=== PATIENT | female | born 1985 | race African-American/Black ===

== ENCOUNTER 2018-04-12 12:53 | Observation (INO) ==
[2018-04-12] MEDS ORDERED: Acetaminophen 325 MG Tablet PO PRN (12:55)
[2018-04-12] MEDS ORDERED: Labetalol HCl Inj 100 MG/20 ML Vial IV.PUSH PRN ×3 (12:55→13:17)
[2018-04-12] MEDS ORDERED: Docusate Sodium 100 MG Capsule PO PRN (12:55)
[2018-04-12] MEDS ORDERED: Zolpidem Tartrate 5 MG Tablet PO PRN (12:55)
[2018-04-12] MEDS ORDERED: NIFEdipine 10 MG Capsule PO PRN (13:42)
[2018-04-12] MEDS ORDERED: NIFEdipine 10 MG Capsule ONE (13:42)
--- NOTE | 2018-04-12 13:49 | ED ---
History of Present Illness Primary Care Physician: No Primary Care Physician History of Present Illness: 32-year-old female at 19/1 weeks gestation presents to [facility] ED [facility] for elevated blood pressures of 228/129. [facility] Patient states that she has chronic hypertension. She currently takes Procardia 60 mg daily and labetalol 100 mg twice daily. States that she took her labetalol this morning. States that she takes Procardia at night. She reports that her blood pressures have been controlled at home. Endorses good movement. Denies hypertension, chest pain, shortness of breath, vision changes, abdominal pain, and swelling. Denies leakage of fluid and vaginal bleeding. Past medical history: Chronic hypertension Past surgical history 13 years ago at [facility] Allergies: NKDA Medications: vitamins, Procardia 6 mg daily, labetalol 100 mg twice daily Family history: None Social history: Denies smoking, alcohol, and illicit drug use Review of Systems All other systems reviewed negative except as stated [facility] - Family History Family History: Family History (Last Updated 04/12/18 @ 13:57 by Juliana Salguero MD, R2) Other No significant family history - Social History I have reviewed the patient's Social History: Yes - Tobacco History Smoking Status: Never smoker - Travel History Recent Travel in the [place] Within the Last 8 Weeks: No Recent Travel Out of the Country Within the Last 8 Weeks: No Medications and Allergies Active Medications: Active Medications Acetaminophen (Tylenol) 650 mg PO Q4H PRN PRN Reason: PAIN SCALE 1 TO 2 Docusate Sodium (Colace) 100 mg PO BID PRN PRN Reason: CONSTIPATION Lactated Ringer's (Lr 1000 Ml Inj) 1,000 mls @ 75 mls/hr IV.CONT .[id number] ROSA Labetalol HCl (Trandate Inj) 20 mg IV.PUSH NOW PRN PRN Reason: SEE LABEL COMMENTS Labetalol HCl (Trandate Inj) 80 mg IV.PUSH NOW PRN PRN Reason: SEE LABEL COMMENTS Labetalol HCl (Trandate Inj) 40 mg IV.PUSH NOW PRN PRN Reason: SEE LABEL COMMENTS Nifedipine (Procardia) 10 mg PO NOW PRN PRN Reason: SEE LABEL COMMENTS Nifedipine (Procardia) 20 mg PO NOW PRN PRN Reason: SEE LABEL COMMENTS Nifedipine (Procardia) 20 mg PO NOW PRN PRN Reason: SEE LABEL COMMENTS Ondansetron HCl (Zofran Odt) 4 mg PO Q6H PRN PRN Reason: NAUSEA OR VOMITING Ondansetron HCl (Zofran Inj) 4 mg IV.PUSH Q6H PRN PRN Reason: NAUSEA OR VOMITING Vit/Calcium/Iron/Folic Ac (Stuartnatal Plus 3) 1 tab PO DAILY ROSA Sodium Chloride (Ns Flush) 2 ml IV.FLUSH PRN PRN PRN Reason: FLUSH AFTER USING IV ACCESS Sodium Chloride (Ns Flush) 2 ml IV.FLUSH BID ROSA Zolpidem Tartrate (Ambien) 5 mg PO HS PRN PRN Reason: INSOMNIA Allergies Allergy/AdvReac Type Severity Reaction Status Date / Time No Known Allergies Allergy Verified 04/12/18 12:57 Exam Vital signs: Vital Signs 04/12/18 13:02 Pulse Rate 79 Blood Pressure 220/101 H Intake & Output 04/11/18 04/12/18 04/12/18 18:59 06:59 18:59 Weight 140.614 kg Narrative: GENERAL: Well-nourished, well-developed patient. SKIN: Warm and dry. HEAD: Normocephalic and atraumatic. EYES: No scleral icterus. No injection or drainage. ENT: No nasal drainage noted. Mucous membranes pink. Airway patent. NECK: Supple, trachea midline. No JVD. CARDIOVASCULAR: Regular rate and rhythm without murmurs, gallops, or rubs. RESPIRATORY: Breath sounds equal bilaterally. No accessory muscle use. BREASTS: Bilateral exam showed no masses , no retractions, no nipple discharge. ABDOMEN/GI: Abdomen soft, non-tender, bowel sounds present, no rebound, no guarding EXTREMITIES: No cyanosis or edema. BACK: Nontender without obvious deformity. No CVA tenderness. NEUROLOGICAL: Awake and alert. Motor and sensory grossly within normal limits. Five out of 5 muscle strength in all muscle groups. Normal speech. Assessment and Plan - Diagnosis (1) Chronic hypertension affecting Code(s): O10.919 - Unspecified pre-existing hypertension complicating , unspecified trimester Status: Acute (2) 19 weeks gestation of Code(s): Z3A.19 - 19 weeks gestation of Status: Acute (3) Hypertensive crisis Code(s): I16.9 - Hypertensive crisis, unspecified Status: Acute - Plan 32-year-old female at 19/1 weeks gestation presents to [facility] ED [facility] for hypertensive crisis. -Admit patient for 24 observation -Will administer Nifedipine PO and titrate as needed per hypertensive protocol -CBC, CMP, protein/creatine urine ratio, uric acid, UA & urine culture, 24 hr urine creatinine, 24 hr total protein, TSH & T4 ordered and pending sdw Dr. Ibanez Discharge Plan - Physicians Team Primary Care Provider: Primary Care Elinor Last Attending Provider: Syed Ibanez
--- NOTE | 2018-04-12 14:16 | P.OBGPN ---
Patient: Michelle Cervantes MR#: [id number] : 1985 Acct: [id number] Age/Sex: 32 / F ADM Date: 04/12/18 Loc: H2E 218-A Report Date: 04/12/[address]: Syed Ibanez MD cc: History of Present Illness Primary Care Physician: No Primary Care Physician History of Present Illness: 32-year-old female at 19/1 weeks gestation presents to [facility] for elevated blood pressures of 228/129. [facility] Patient states that she has chronic hypertension. She currently takes Procardia 60 mg daily and labetalol 100 mg twice daily. States that she took her labetalol this morning. States that she takes Procardia at night. She reports that her blood pressures have been controlled at home. Endorses good movement. Denies hypertension, chest pain, shortness of breath, vision changes, abdominal pain, and swelling. Denies leakage of fluid and vaginal bleeding. Past medical history: Chronic hypertension Past surgical history 13 years ago at [facility] Allergies: NKDA Medications: vitamins, Procardia 6 mg daily, labetalol 100 mg twice daily Family history: None Social history: Denies smoking, alcohol, and illicit drug use Review of Systems All other systems reviewed negative except as stated in HPI [facility] - Family History Family History: Family History (Last Updated 04/12/18 @ 13:57 by Juliana Salguero MD, R2) Other No significant family history - Social History I have reviewed the patient's Social History: Yes - Tobacco History Smoking Status: Never smoker - Travel History Recent Travel in the [place] Within the Last 8 Weeks: No Recent Travel Out of the Country Within the Last 8 Weeks: No Medications and Allergies Active Medications: Active Medications Acetaminophen (Tylenol) 650 mg PO Q4H PRN PRN Reason: PAIN SCALE 1 TO 2 Docusate Sodium (Colace) 100 mg PO BID PRN PRN Reason: CONSTIPATION Lactated Ringer's (Lr 1000 Ml Inj) 1,000 mls @ 75 mls/hr IV.CONT .[id number] ROSA Labetalol HCl (Trandate Inj) 20 mg IV.PUSH NOW PRN PRN Reason: SEE LABEL COMMENTS Labetalol HCl (Trandate Inj) 80 mg IV.PUSH NOW PRN PRN Reason: SEE LABEL COMMENTS Labetalol HCl (Trandate Inj) 40 mg IV.PUSH NOW PRN PRN Reason: SEE LABEL COMMENTS Nifedipine (Procardia) 10 mg PO NOW PRN PRN Reason: SEE LABEL COMMENTS Nifedipine (Procardia) 20 mg PO NOW PRN PRN Reason: SEE LABEL COMMENTS Nifedipine (Procardia) 20 mg PO NOW PRN PRN Reason: SEE LABEL COMMENTS Ondansetron HCl (Zofran Odt) 4 mg PO Q6H PRN PRN Reason: NAUSEA OR VOMITING Ondansetron HCl (Zofran Inj) 4 mg IV.PUSH Q6H PRN PRN Reason: NAUSEA OR VOMITING Vit/Calcium/Iron/Folic Ac (Stuartnatal Plus 3) 1 tab PO DAILY ROSA Sodium Chloride (Ns Flush) 2 ml IV.FLUSH PRN PRN PRN Reason: FLUSH AFTER USING IV ACCESS Sodium Chloride (Ns Flush) 2 ml IV.FLUSH BID ROSA Zolpidem Tartrate (Ambien) 5 mg PO HS PRN PRN Reason: INSOMNIA Allergies Allergy/AdvReac Type Severity Reaction Status Date / Time No Known Allergies Allergy Verified 04/12/18 12:57 Exam Vital signs: Vital Signs 04/12/18 13:02 Pulse Rate 79 Blood Pressure 220/101 H Intake & Output 04/11/18 04/12/18 04/12/18 18:59 06:59 18:59 Weight 140.614 kg Narrative: GENERAL: Well-nourished, well-developed patient. SKIN: Warm and dry. HEAD: Normocephalic and atraumatic. EYES: No scleral icterus. No injection or drainage. ENT: No nasal drainage noted. Mucous membranes pink. Airway patent. NECK: Supple, trachea midline. No JVD. CARDIOVASCULAR: Regular rate and rhythm without murmurs, gallops, or rubs. RESPIRATORY: Breath sounds equal bilaterally. No accessory muscle use. BREASTS: Bilateral exam showed no masses , no retractions, no nipple discharge. ABDOMEN/GI: Abdomen soft, non-tender, bowel sounds present, no rebound, no guarding EXTREMITIES: No cyanosis or edema. BACK: Nontender without obvious deformity. No CVA tenderness. NEUROLOGICAL: Awake and alert. Motor and sensory grossly within normal limits. Five out of 5 muscle strength in all muscle groups. Normal speech. Assessment and Plan - Diagnosis (1) Chronic hypertension affecting Code(s): O10.919 - Unspecified pre-existing hypertension complicating , unspecified trimester Status: Acute (2) 19 weeks gestation of Code(s): Z3A.19 - 19 weeks gestation of Status: Acute (3) Hypertensive crisis Code(s): I16.9 - Hypertensive crisis, unspecified Status: Acute - Plan 32-year-old female at 19/1 weeks gestation presents to the [facility] ED from [facility] for hypertensive crisis. -Admit patient for 24 observation -Will administer Nifedipine PO and titrate as needed per hypertensive protocol -CBC, CMP, protein/creatine urine ratio, uric acid, UA & urine culture, 24 hr urine creatinine, 24 hr total protein, TSH & T4 ordered and pending sdw Dr. Ibanez Discharge Plan - Physicians Team Primary Care Provider: Primary Care Elinor Last Attending Provider: Syed Ibanez Documented By: Juliana Salguero MD R2 04/12/18 1448 Signed By:
[2018-04-12 14:58] LABS: Alkaline Phosphatase 110 U/L (45-117); Total Protein 7.9 g/dL (6.4-8.2)
[2018-04-12 15:20] LABS: Alanine Aminotransferase 15 U/L (10-53); Albumin 2.9 g/dL (3.4-5.0); Anion Gap 8 meq/L (5-15); Aspartate Aminotransferase 34 U/L (15-37); Blood Urea Nitrogen 6 mg/dL (7-18); Calcium 8.6 mg/dL (8.5-10.1); Carbon Dioxide 21.5 meq/L (21.0-32.0); Chloride 107 meq/L (98-107); Glomerular Filtration Rate Greater Than 89 mL/min (>89); Glucose,Random 74 mg/dL (74-106); Sodium 136 meq/L (136-145); Uric Acid 2.9 mg/dl (2.6-6.0)
[2018-04-12 15:23] LABS: Potassium 4.7 meq/L (3.5-5.1)
[2018-04-12 15:25] LABS: Bacteria,Urine Moderate /hpf; Bilirubin,Urine Negative (Negative); Clarity,Urine Hazy (Clear); Color,Urine Yellow (Yellw/Straw); Glucose,Urine (UA) Negative (Negative); Leukocyte Esterase,Urine Negative (Negative); Mucus,Urine Few /lpf (Occasional); Nitrite,Urine Negative (Negative); Specific Gravity,Urine 1.017 (1.002-1.035); Squamous Epithelial Cell,Urine 2 /hpf (0-5)
[2018-04-12 15:38] LABS: Amphetamine Urine With Conf Neg (Neg); Benzodiazepine Urine With Conf Neg (Neg); Cocaine Urine With Conf Neg (Neg); Opiates Urine With Conf Neg (Neg)
[2018-04-12 15:38] LABS: Hematocrit 32.1 % (35.0-46.0); Hemoglobin 11.5 gm/dL (11.6-15.3); Mean Corpuscular HGB Conc 35.9 % (32.0-36.0); Mean Corpuscular Hemoglobin 28.5 pg (27.0-34.0); Mean Corpuscular Volume 79.4 fL (80.0-100.0); Mean Platelet Volume 7.9 fL (7.0-11.0); Platelet Count 280 th/mm3 (150-450); Red Blood Count 4.04 mil/mm3 (4.00-5.30); Red Cell Distribution Width 16.1 % (11.6-17.2); White Blood Count 6.9 th/mm3 (4.0-11.0)
[2018-04-12 15:42] LABS: Cannabinoid Urine With Conf Neg (Neg)
[2018-04-12 15:48] LABS: Protein/Creatinine Ratio,Urine 0.25 (0.00-0.14); Total Protein,Urine Random 29.5 mg/dL (0-11.8)
--- NOTE | 2018-04-12 15:51 | ECG ---
Date Performed: 04/12/2018 Time Performed: 14:11:04 PTAGE: 32 years EKG: Sinus rhythm borderline NONSPECIFIC ST & T-WAVE ABNORMALITY BORDERLINE ECG NO PREVIOUS TRACING DOCTOR: Jose Guadalupe Valencia Interpretating Date/Time 04/12/2018 15:50:19
[2018-04-12 16:12] LABS: Thyroid Stimulating Hormone 0.451 uIU/mL (0.358-3.740)
--- NOTE | 2018-04-12 16:42 | P.HPOB ---
Patient: Michelle Cervantes MR#: [id number] : 1985 Acct: [id number] Age/Sex: 32 / F ADM Date: 04/12/18 Loc: H2E 218-A Report Date: 04/12/[address]: Syed Ibanez MD cc: Patient: Michelle Cervantes MR#: [id number] : 1985 Acct: [id number] Age/Sex: 32 / F ADM Date: 04/12/18 Loc: H2E 218-A Report Date: 04/12/[address]: Syed Ibanez MD cc: History of Present Illness Primary Care Physician: No Primary Care Physician History of Present Illness: 32-year-old female at 19/1 weeks gestation presents to [facility] for elevated blood pressures of 228/129. [facility]. Patient states that she has chronic hypertension. She currently takes Procardia 60 mg daily and labetalol 100 mg twice daily. States that she took her labetalol this morning. States that she takes Procardia at night. She reports that her blood pressures have been controlled at home. Endorses good movement. Denies hypertension, chest pain, shortness of breath, vision changes, abdominal pain, and swelling. Denies leakage of fluid and vaginal bleeding. Past medical history: Chronic hypertension Past surgical history 13 years ago at [facility] Allergies: NKDA Medications: vitamins, Procardia 6 mg daily, labetalol 100 mg twice daily Family history: None Social history: Denies smoking, alcohol, and illicit drug use Review of Systems All other systems reviewed negative except as stated in HPI [facility] - Family History Family History: Family History (Last Updated 04/12/18 @ 13:57 by Juliana Salguero MD, R2) Other No significant family history - Social History I have reviewed the patient's Social History: Yes - Tobacco History Smoking Status: Never smoker - Travel History Recent Travel in the [place] Within the Last 8 Weeks: No Recent Travel Out of the Country Within the Last 8 Weeks: No Medications and Allergies Active Medications: Active Medications Acetaminophen (Tylenol) 650 mg PO Q4H PRN PRN Reason: PAIN SCALE 1 TO 2 Docusate Sodium (Colace) 100 mg PO BID PRN PRN Reason: CONSTIPATION Lactated Ringer's (Lr 1000 Ml Inj) 1,000 mls @ 75 mls/hr IV.CONT .[id number] ROSA Labetalol HCl (Trandate Inj) 20 mg IV.PUSH NOW PRN PRN Reason: SEE LABEL COMMENTS Labetalol HCl (Trandate Inj) 80 mg IV.PUSH NOW PRN PRN Reason: SEE LABEL COMMENTS Labetalol HCl (Trandate Inj) 40 mg IV.PUSH NOW PRN PRN Reason: SEE LABEL COMMENTS Nifedipine (Procardia) 10 mg PO NOW PRN PRN Reason: SEE LABEL COMMENTS Nifedipine (Procardia) 20 mg PO NOW PRN PRN Reason: SEE LABEL COMMENTS Nifedipine (Procardia) 20 mg PO NOW PRN PRN Reason: SEE LABEL COMMENTS Ondansetron HCl (Zofran Odt) 4 mg PO Q6H PRN PRN Reason: NAUSEA OR VOMITING Ondansetron HCl (Zofran Inj) 4 mg IV.PUSH Q6H PRN PRN Reason: NAUSEA OR VOMITING Vit/Calcium/Iron/Folic Ac (Stuartnatal Plus 3) 1 tab PO DAILY ROSA Sodium Chloride (Ns Flush) 2 ml IV.FLUSH PRN PRN PRN Reason: FLUSH AFTER USING IV ACCESS Sodium Chloride (Ns Flush) 2 ml IV.FLUSH BID ROSA Zolpidem Tartrate (Ambien) 5 mg PO HS PRN PRN Reason: INSOMNIA Allergies Allergy/AdvReac Type Severity Reaction Status Date / Time No Known Allergies Allergy Verified 04/12/18 12:57 Exam Vital signs: Vital Signs 04/12/18 13:02 Pulse Rate 79 Blood Pressure 220/101 H Intake & Output 04/11/18 04/12/18 04/12/18 18:59 06:59 18:59 Weight 140.614 kg Narrative: GENERAL: Well-nourished, well-developed patient. SKIN: Warm and dry. HEAD: Normocephalic and atraumatic. EYES: No scleral icterus. No injection or drainage. ENT: No nasal drainage noted. Mucous membranes pink. Airway patent. NECK: Supple, trachea midline. No JVD. CARDIOVASCULAR: Regular rate and rhythm without murmurs, gallops, or rubs. RESPIRATORY: Breath sounds equal bilaterally. No accessory muscle use. BREASTS: Bilateral exam showed no masses , no retractions, no nipple discharge. ABDOMEN/GI: Abdomen soft, non-tender, bowel sounds present, no rebound, no guarding EXTREMITIES: No cyanosis or edema. BACK: Nontender without obvious deformity. No CVA tenderness. NEUROLOGICAL: Awake and alert. Motor and sensory grossly within normal limits. Five out of 5 muscle strength in all muscle groups. Normal speech. Assessment and Plan - Diagnosis (1) Chronic hypertension affecting Code(s): O10.919 - Unspecified pre-existing hypertension complicating , unspecified trimester Status: Acute (2) 19 weeks gestation of Code(s): Z3A.19 - 19 weeks gestation of Status: Acute (3) Hypertensive crisis Code(s): I16.9 - Hypertensive crisis, unspecified Status: Acute - Plan 32-year-old female at 19/1 weeks gestation presents to [facility] ED [facility] for hypertensive crisis. -Admit patient for 24 observation -Will administer Nifedipine PO and titrate as needed per hypertensive protocol -CBC, CMP, protein/creatine urine ratio, uric acid, UA & urine culture, 24 hr urine creatinine, 24 hr total protein, TSH & T4 ordered and pending sdw Dr. Ibanez Discharge Plan - Physicians Team Primary Care Provider: Primary Care Navi,Elinor Attending Provider: Syed Ibanez Documented By: Juliana Salguero MD R2 04/12/18 1349 Signed By: Documented By: Juliana Salguero MD R2 04/12/18 1415 Signed By: <Electronically signed by Juliana Landis MD R2 Jose M> 04/12/18 1416 <Electronically signed by Syed Ibanez MD> 04/12/18 6770
[2018-04-12] MEDS ORDERED: Labetalol 200 MG Tablet PO ONE (18:00)
[2018-04-12] MEDS: hydrALAZINE HCl Inj 20 MG/ML Vial IV.PUSH PRN (19:35)
[2018-04-12] MEDS ORDERED: Butalbital/APAP/Caff 50/325/40 MG Tablet PO PRN (21:36)
[2018-04-13] MEDS: Labetalol 200 MG Tablet PO SCH ×3 (02:00→14:05)
[2018-04-13] MEDS ORDERED: Labetalol 200 MG Tablet PO SCH (06:00)
[2018-04-13] MEDS: hydrALAZINE HCl Inj 20 MG/ML Vial IV.PUSH PRN (07:32)
[2018-04-13] MEDS: Prenatal Vit/Ca/Iron/Folic Acid Tablet PO SCH (09:10)
--- NOTE | 2018-04-13 10:35 | P.OBANTE ---
Subjective Interval History: Pt feeling better, she states she had a similar episode in December where she had to be hospitalized for BP in the 200's. Pt denies headache, chest pain, shortness of breath. Antepartum ROS: Reports: movement normal Denies: Loss of fluid, Vaginal bleeding, Contractions Objective Vital Signs and I&O: Vital Signs 04/12/18 13:02 04/12/18 13:15 04/12/18 13:45 Temperature 98.1 F Pulse Rate 79 79 Respiratory Rate 18 Blood Pressure 220/101 H 208/101 H 04/12/18 14:01 04/12/18 14:21 04/12/18 14:52 Temperature Pulse Rate 73 87 90 Respiratory Rate Blood Pressure 205/105 H 162/95 H 174/77 H 04/12/18 15:04 04/12/18 15:37 04/12/18 15:41 Temperature Pulse Rate 89 106 H 100 H Respiratory Rate Blood Pressure 175/86 H 187/84 H 173/71 H 04/12/18 16:01 04/12/18 16:11 04/12/18 16:31 Temperature Pulse Rate 87 96 H 87 Respiratory Rate Blood Pressure 161/75 H 168/81 H 167/78 H 04/12/18 16:41 04/12/18 16:51 04/12/18 17:11 Temperature Pulse Rate 92 H 86 87 Respiratory Rate Blood Pressure 178/95 H 176/86 H 155/78 H 04/12/18 17:21 04/12/18 17:51 04/12/18 19:01 Temperature Pulse Rate 83 83 83 Respiratory Rate Blood Pressure 165/88 H 172/85 H 175/85 H 04/12/18 20:00 04/12/18 20:01 04/12/18 20:02 Temperature 98.9 F Pulse Rate 86 90 Respiratory Rate 18 18 Blood Pressure 163/87 H 161/83 H 04/12/18 20:57 04/12/18 21:04 04/12/18 22:06 Temperature Pulse Rate 87 82 Respiratory Rate 18 18 18 Blood Pressure 162/86 H 158/79 H 04/12/18 23:05 04/13/18 00:00 04/13/18 00:02 Temperature 98.0 F Pulse Rate 97 H 89 Respiratory Rate 18 18 Blood Pressure 121/67 137/77 04/13/18 01:02 04/13/18 02:05 04/13/18 03:12 Temperature Pulse Rate 84 88 80 Respiratory Rate 18 18 18 Blood Pressure 138/77 134/80 141/83 H 04/13/18 04:03 04/13/18 05:03 04/13/18 05:04 Temperature 98.0 F Pulse Rate 80 84 Respiratory Rate 18 18 Blood Pressure 150/91 H 156/89 H 04/13/18 06:01 04/13/18 06:06 04/13/18 07:00 Temperature Pulse Rate 77 Respiratory Rate 18 18 Blood Pressure 159/89 H 04/13/18 07:01 04/13/18 10:00 04/13/18 10:01 Temperature Pulse Rate 71 82 Respiratory Rate 19 Blood Pressure 163/88 H 166/84 H Intake & Output 04/12/18 04/13/18 04/13/18 18:59 06:59 18:59 Intake Total 1000 / 1000 Balance 1000 / 1000 Weight 140.614 kg Intake: IV 1000 / 1000 LR 1000 mL Inj 1,000 ML @ 75 1000 / 1000 mls/hr IV.CONT .[id number] [facility] Rx# :[id number] Lab and Micro Results: Laboratory Results - last 24 hr 04/12/18 04/12/18 04/12/18 13:05 13:05 13:05 WBC RBC Hgb Hct MCV MCH MCHC RDW Plt Count MPV Sodium Potassium Chloride Carbon Dioxide Anion Gap BUN Creatinine Estimated GFR Random Glucose Uric Acid Calcium Total Bilirubin AST ALT Alkaline Phosphatase Total Protein Albumin TSH Free T4 Urine Color Yellow Urine Clarity Hazy H Urine pH 6.0 Ur Specific [place] 1.017 Urine Protein Negative Urine Glucose (UA) Negative Urine Ketones 20 Urine Occult Blood Negative Urine Nitrate Negative Urine Bilirubin Negative Urine Urobilinogen 2.0 H Ur Leukocyte Esterase Negative Urine RBC 1 Urine WBC 4 Ur Squamous Epith Cells 2 Urine Bacteria Moderate H Urine Mucus Few H Micro UA Comment Culture indicated Ur Microscopic Review Not Reportable Urine Culture Comments Culture indicated Ur Random Creatinine 117 U Random Total Protein 29.5 H Protein/Creatinin Ratio 0.25 H Urine Opiates Screen Neg Ur Barbiturates Screen Neg Ur Amphetamine Screen Neg U Benzodiazepines Scrn Neg Urine Cocaine Screen Neg U Cannabinoids Screen Neg 04/12/18 04/12/18 04/12/18 13:55 15:02 15:02 WBC 6.9 RBC 4.04 Hgb 11.5 L Hct 32.1 L MCV 79.4 L MCH 28.5 MCHC 35.9 RDW 16.1 Plt Count 280 MPV 7.9 Sodium 136 Potassium 4.7 Chloride 107 Carbon Dioxide 21.5 Anion Gap 8 BUN 6 L Creatinine 0.50 Estimated GFR Greater than 89 Random Glucose 74 Uric Acid 2.9 Calcium 8.6 Total Bilirubin 0.5 AST 34 ALT 15 Alkaline Phosphatase 110 Total Protein 7.9 Albumin 2.9 L TSH 0.451 Free T4 1.00 Urine Color Urine Clarity Urine pH Ur Specific [place] Urine Protein Urine Glucose (UA) Urine Ketones Urine Occult Blood Urine Nitrate Urine Bilirubin Urine Urobilinogen Ur Leukocyte Esterase Urine RBC Urine WBC Ur Squamous Epith Cells Urine Bacteria Urine Mucus Micro UA Comment Ur Microscopic Review Urine Culture Comments Ur Random Creatinine U Random Total Protein Protein/Creatinin Ratio Urine Opiates Screen Ur Barbiturates Screen Ur Amphetamine Screen U Benzodiazepines Scrn Urine Cocaine Screen U Cannabinoids Screen Physical Exam: GENERAL: morbidly obese AA female. CARDIOVASCULAR: Regular rate and rhythm, murmur noted, 2/6 hard to asses. RESPIRATORY: Breath sounds equal bilaterally. No accessory muscle use. ABDOMEN/GI: Abdomen soft, non-tender. EXTREMITIES: No cyanosis or edema, non-tender, without signs of DVT. Assessment and Plan - Diagnosis (1) Chronic hypertension affecting Code(s): O10.919 - Unspecified pre-existing hypertension complicating , unspecified trimester Status: Acute (2) 19 weeks gestation of Code(s): Z3A.19 - 19 weeks gestation of Status: Acute (3) Hypertensive crisis Code(s): I16.9 - Hypertensive crisis, unspecified Status: Acute (4) Heart murmur Code(s): R01.1 - Cardiac murmur, unspecified Status: Acute (5) UTI (urinary tract infection) Code(s): N39.0 - Urinary tract infection, site not specified Status: Acute - Plan 32-year-old female at 19/2 weeks gestation admitted with hypertensive emergency in . Plan: - admitting BP 228/129 - Chronic hypertension - Currently takes Procardia 60 mg daily and labetalol 100 mg twice daily - TSH, T4 wnl - UA w/ indications for culture. Asymptomatic bacteruria - Protein/ Creatinine ration 0.25 - 24 Hr protein 376 - Negative UDS - Goal for today is to optimize BP medications and control sdw Dr. Encinas
[2018-04-13] MEDS ORDERED: Labetalol HCl Inj 100 MG/20 ML Vial IV.PUSH ONE ×3 (11:00→13:30)
--- NOTE | 2018-04-13 13:35 | ECHRPT ---
Indication: Hypertensive heart disease without heart failure CONCLUSIONS The left ventricular systolic function is normal with an estimated ejection fraction in the range of 60-65%. Mild concentric left ventricular hypertrophy. Trace mitral valve regurgitation. There is mild tricuspid valve regurgitation. BP: / HR: Rhythm: Sinus MEASUREMENTS (Male / Female) Normal Values Technical Quality:Good 2D ECHO LV Diastolic Diameter PLAX 5.1 cm 4.2 - 5.9 / 3.9 - 5.3 cm LV Systolic Diameter PLAX 3.6 cm IVS Diastolic Thickness 1.2 cm 0.6 - 1.0 / 0.6 - 0.9 cm LVPW Diastolic Thickness 1.2 cm 0.6 - 1.0 / 0.6 - 0.9 cm LV Relative Wall Thickness 0.5 LVOT Diameter 2.0 cm M-MODE Aortic Root Diameter MM 3.3 cm LA Systolic Diameter MM 3.9 cm LA Ao Ratio MM 1.2 AV Cusp Separation MM 2.1 cm DOPPLER AV Peak Velocity 196.0 cm/s AV Peak Gradient 15.4 mmHg LVOT Peak Velocity 146.0 cm/s LVOT Peak Gradient 8.5 mmHg AV Area Cont Eq pk 2.3 cm Mitral E Point Velocity 108.0 cm/s Mitral A Point Velocity 66.6 cm/s Mitral E to A Ratio 1.6 LV E' Lateral Velocity 6.5 cm/s Mitral E to LV E' Lateral Ratio 16.5 LV E' Septal Velocity 5.9 cm/s Mitral E to LV E' Septal Ratio 18.2 TR Peak Velocity 291.0 cm/s TR Peak Gradient 33.9 mmHg Right Atrial Pressure 10.0 mmHg Pulmonary Artery Systolic Pressu 43.9 mmHg Right Ventricular Systolic Press 43.9 mmHg PV Peak Velocity 166.0 cm/s PV Peak Gradient 11.0 mmHg FINDINGS LEFT VENTRICLE The left ventricular systolic function is normal with an estimated ejection fraction in the range of 60-65%. Normal left ventricular size. Mild concentric left ventricular hypertrophy. No regional wall motion abnormalities are present. This study was not technically sufficient to allow for evaluation of left ventricular diastolic func tion. RIGHT VENTRICLE Normal right ventricular size and systolic function. LEFT ATRIUM The left atrial size is upper limits of normal. RIGHT ATRIUM The right atrial size is normal. ATRIAL SEPTUM Normal atrial septal thickness AORTA The aortic root and proximal ascending aorta are normal in size on limited imaging. MITRAL VALVE Structurally normal mitral valve. Trace mitral valve regurgitation. No mitral valve stenosis. AORTIC VALVE Trileaflet aortic valve. No aortic valve stenosis or regurgitation. TRICUSPID VALVE Grossly normal There is mild tricuspid valve regurgitation. The estimated pulmonary arterial pressure is 43.9 mmHg. PULMONARY VALVE No pulmonary valve regurgitation or stenosis. VESSELS The inferior vena cava is normal in size. PERICARDIUM No pericardial effusion. Crow Sousa DO (Electronically Signed) Final Date:13 April 2018 13:34
[2018-04-13] MEDS ORDERED: NIFEdipine 10 MG Capsule ONE ×2 (14:01→15:17)
[2018-04-13] MEDS ORDERED: NIFEdipine 10 MG Capsule PO ONE ×3 (15:20→20:00)
[2018-04-13 17:18] LABS: Creatinine 24 Hour,Urine 1.8 gm/24hr (0.63-2.50)
[2018-04-14] MEDS: Labetalol 200 MG Tablet PO SCH ×2 (04:12→08:52)
--- NOTE | 2018-04-14 04:36 | P.OBANTE ---
Subjective Interval History: Hospital day #3 Patient without complaints of headache chest pain shortness of breath right upper quadrant pain no leg pain Antepartum ROS: Denies: New complaints, Loss of fluid, Vaginal bleeding, Contractions Objective Vital Signs and I&O: Vital Signs 04/13/18 05:03 04/13/18 05:04 04/13/18 06:01 Temperature 98.0 F Pulse Rate 84 77 Respiratory Rate 18 Blood Pressure 156/89 H 159/89 H 04/13/18 06:06 04/13/18 07:00 04/13/18 07:01 Temperature Pulse Rate 71 Respiratory Rate 18 18 Blood Pressure 163/88 H 04/13/18 10:00 04/13/18 10:01 04/13/18 10:28 Temperature Pulse Rate 82 86 Respiratory Rate 19 Blood Pressure 166/84 H 04/13/18 11:01 04/13/18 11:57 04/13/18 12:00 Temperature 99.2 F Pulse Rate 85 Respiratory Rate 20 Blood Pressure 150/81 H 04/13/18 12:01 04/13/18 12:51 04/13/18 12:56 Temperature Pulse Rate 77 82 76 Respiratory Rate Blood Pressure 163/82 H 162/81 H 162/82 H 04/13/18 13:00 04/13/18 13:01 04/13/18 13:40 Temperature Pulse Rate 81 79 Respiratory Rate 20 Blood Pressure 159/77 H 154/81 H 04/13/18 14:55 04/13/18 16:57 04/13/18 17:00 Temperature 99.0 F Pulse Rate 74 80 79 Respiratory Rate 20 Blood Pressure 171/100 H 141/83 H 04/13/18 17:31 04/13/18 19:01 04/13/18 19:30 Temperature Pulse Rate 78 83 Respiratory Rate 20 Blood Pressure 171/92 H 166/91 H 04/13/18 19:31 04/13/18 20:01 04/13/18 20:31 Temperature Pulse Rate 85 86 96 H Respiratory Rate Blood Pressure 175/92 H 156/82 H 147/84 H 04/13/18 20:39 04/13/18 21:31 04/13/18 21:35 Temperature 98.9 F Pulse Rate 95 H Respiratory Rate 20 20 Blood Pressure 147/79 H 04/13/18 22:27 04/13/18 22:31 04/13/18 23:25 Temperature Pulse Rate 94 H 86 85 Respiratory Rate 20 20 Blood Pressure 139/76 142/77 H 137/82 04/13/18 23:31 04/14/18 01:00 04/14/18 01:01 Temperature Pulse Rate 85 80 Respiratory Rate 20 Blood Pressure 142/78 H 152/78 H 04/14/18 01:31 04/14/18 03:00 04/14/18 03:31 Temperature Pulse Rate 86 81 86 Respiratory Rate 20 Blood Pressure 154/84 H 161/87 H 162/93 H 04/14/18 04:00 Temperature Pulse Rate Respiratory Rate 20 Blood Pressure Intake & Output 04/13/18 04/13/18 04/14/18 06:59 18:59 06:59 Intake Total 1000 / 1000 1999 / 1999 Balance 1000 / 1000 1999 Intake: IV 1000 / 1000 1999 LR 1000 mL Inj 1,000 ML @ 75 1000 / 1000 1999 / 1999 mls/hr IV.CONT .[id number] [facility] Rx# :[id number] Lab and Micro Results: Laboratory Results - last 24 hr 04/12/18 04/13/18 13:05 16:38 Urine Color Yellow Urine Clarity Hazy H Urine pH 6.0 Ur Specific [place] 1.017 Urine Protein Negative Urine Glucose (UA) Negative Urine Ketones 20 Urine Occult Blood Negative Urine Nitrate Negative Urine Bilirubin Negative Urine Urobilinogen 2.0 H Ur Leukocyte Esterase Negative Urine RBC 1 Urine WBC 4 Ur Squamous Epith Cells 2 Urine Bacteria Moderate H Urine Mucus Few H Micro UA Comment Culture indicated Urine Culture Comments Culture indicated Ur 24 Hour Volume 3875 Ur Creatinine 24 Hour 1.80 Ur Total Protein 24 Hr 376 H Microbiology 04/12/18 13:05 Urine Culture - Preliminary Clean Catch Urine gram negative rods Physical Exam: GENERAL: Well-nourished, well-developed patient,obese CARDIOVASCULAR: Regular rate and rhythm without murmurs, gallops, or rubs. RESPIRATORY: Breath sounds equal bilaterally. No accessory muscle use. ABDOMEN/GI: Abdomen soft, non-tender. Fundus: gravid FHT's: present EXTREMITIES: No cyanosis or edema, non-tender, without signs of DVT. Assessment and Plan - Diagnosis (1) Chronic hypertension affecting Code(s): O10.919 - Unspecified pre-existing hypertension complicating , unspecified trimester Status: Acute (2) 19 weeks gestation of Code(s): Z3A.19 - 19 weeks gestation of Status: Acute - Plan Plan of care discussed with patient BP is improved from admission however still elevated- Goal is 150/90 and hopefully at some point 140/90 However periodically BP is noted to elevate to 160s over 80s-she has had a good response to nifedipine p.o. versus labetalol IV Plan will be to increase Procardia to 30 XL in a.m. and keep the 60 XL p.m. and we review the response A long discussion with the patient regarding her health, and long-term for her growing fetus Made aware if blood pressures are not controlled maternal morbidity mortality stroke, hypertensive crisis which may not respond to meds, even In regards to the fetus-intrauterine growth restriction, uteroplacental insufficiency, delivery, -patient desires to continue Patient understands the need to reduce her blood pressure for overall improved maternal and status Patient has blood pressure cuff at home Made aware that she needs increased frequent visits her OB provider upon discharge
[2018-04-14] MEDS: Prenatal Vit/Ca/Iron/Folic Acid Tablet PO SCH (08:52)
--- NOTE | 2018-04-14 12:00 | P.OBANTE ---
Subjective Interval History: Extensive discussion with patient regarding follow up with OB doctor and importance of high blood pressure control, including a blood pressure cuff at home. Pt voiced understanding. Medication regimen also reviewed with patient today, as well as healthy heart diet, including low sodium, and no processes food. Antepartum ROS: Reports: movement normal Denies: New complaints, Loss of fluid, Vaginal bleeding, Contractions Objective Vital Signs and I&O: Vital Signs 04/13/18 11:01 04/13/18 11:57 04/13/18 12:00 Temperature 99.2 F Pulse Rate 85 Respiratory Rate 20 Blood Pressure 150/81 H 04/13/18 12:01 04/13/18 12:51 04/13/18 12:56 Temperature Pulse Rate 77 82 76 Respiratory Rate Blood Pressure 163/82 H 162/81 H 162/82 H 04/13/18 13:00 04/13/18 13:01 04/13/18 13:40 Temperature Pulse Rate 81 79 Respiratory Rate 20 Blood Pressure 159/77 H 154/81 H 04/13/18 14:55 04/13/18 16:57 04/13/18 17:00 Temperature 99.0 F Pulse Rate 74 80 79 Respiratory Rate 20 Blood Pressure 171/100 H 141/83 H 04/13/18 17:31 04/13/18 19:01 04/13/18 19:30 Temperature Pulse Rate 78 83 Respiratory Rate 20 Blood Pressure 171/92 H 166/91 H 04/13/18 19:31 04/13/18 20:01 04/13/18 20:31 Temperature Pulse Rate 85 86 96 H Respiratory Rate Blood Pressure 175/92 H 156/82 H 147/84 H 04/13/18 20:39 04/13/18 21:31 04/13/18 21:35 Temperature 98.9 F Pulse Rate 95 H Respiratory Rate 20 20 Blood Pressure 147/79 H 04/13/18 22:27 04/13/18 22:31 04/13/18 23:25 Temperature Pulse Rate 94 H 86 85 Respiratory Rate 20 20 Blood Pressure 139/76 142/77 H 137/82 04/13/18 23:31 04/14/18 01:00 04/14/18 01:01 Temperature Pulse Rate 85 80 Respiratory Rate 20 Blood Pressure 142/78 H 152/78 H 04/14/18 01:31 04/14/18 03:00 04/14/18 03:31 Temperature Pulse Rate 86 81 86 Respiratory Rate 20 Blood Pressure 154/84 H 161/87 H 162/93 H 04/14/18 04:00 04/14/18 04:31 04/14/18 04:35 Temperature 97.8 F Pulse Rate 81 Respiratory Rate 20 20 Blood Pressure 163/86 H 04/14/18 05:39 04/14/18 06:01 04/14/18 06:39 Temperature Pulse Rate 83 80 77 Respiratory Rate 20 20 Blood Pressure 143/79 H 145/82 H 141/77 H 04/14/18 07:00 04/14/18 07:01 04/14/18 08:00 Temperature 97.9 F Pulse Rate 76 77 Respiratory Rate 20 Blood Pressure 148/85 H 155/81 H 04/14/18 08:01 04/14/18 09:00 04/14/18 10:00 Temperature Pulse Rate 77 100 H 81 Respiratory Rate 20 Blood Pressure 160/90 H 134/73 142/79 H Intake & Output 04/13/18 04/14/18 04/14/18 18:59 06:59 18:59 Intake Total 1999 Balance 1999 Intake: IV 1999 LR 1000 mL Inj 1,000 ML @ 75 1999 mls/hr IV.CONT .[id number] [facility] Rx# :[id number] Lab and Micro Results: Laboratory Results - last 24 hr 04/12/18 04/13/18 13:05 16:38 Urine Color Yellow Urine Clarity Hazy H Urine pH 6.0 Ur Specific [place] 1.017 Urine Protein Negative Urine Glucose (UA) Negative Urine Ketones 20 Urine Occult Blood Negative Urine Nitrate Negative Urine Bilirubin Negative Urine Urobilinogen 2.0 H Ur Leukocyte Esterase Negative Urine RBC 1 Urine WBC 4 Ur Squamous Epith Cells 2 Urine Bacteria Moderate H Urine Mucus Few H Micro UA Comment Culture indicated Urine Culture Comments Culture indicated Ur 24 Hour Volume 3875 Ur Creatinine 24 Hour 1.80 Ur Total Protein 24 Hr 376 H Microbiology 04/12/18 13:05 Urine Culture - Final Clean Catch Urine Escherichia coli Physical Exam: GENERAL: Obese, AA female in NAD CARDIOVASCULAR: Regular rate and rhythm without murmurs, gallops, or rubs. RESPIRATORY: Breath sounds equal bilaterally. No accessory muscle use. EXTREMITIES: No cyanosis or edema, non-tender, without signs of DVT. Assessment and Plan - Diagnosis (1) Chronic hypertension affecting Code(s): O10.919 - Unspecified pre-existing hypertension complicating , unspecified trimester Status: Acute (2) 19 weeks gestation of Code(s): Z3A.19 - 19 weeks gestation of Status: Acute (3) Hypertensive crisis Code(s): I16.9 - Hypertensive crisis, unspecified Status: Resolved (4) UTI (urinary tract infection) Code(s): N39.0 - Urinary tract infection, site not specified Status: Acute (5) Morbidly obese Code(s): E66.01 - Morbid (severe) obesity due to excess calories Status: Acute (6) Obesity, morbid, BMI 50 or higher Code(s): E66.01 - Morbid (severe) obesity due to excess calories Status: Acute - Plan 32-year-old female at 19/2 weeks gestation admitted with hypertensive emergency in . Plan: - admitting BP 228/129 - Chronic hypertension - Currently takes Procardia 60 mg daily and labetalol 100 mg twice daily - TSH, T4 wnl - Protein/ Creatinine ration 0.25 - 24 Hr protein 376 - Negative UDS - E.Coli UTI Pt sent home with the following medications * Nifedipine 30mg XL in the morning * Nifedipine 90mg XL at night * Labetalol 200mg q8hs * Macrobid 100mg BID for 7 days * Pt has follow up appointment with care for woman on Tuesday at 8.[address] Ibanez (4) UTI (urinary tract infection) Qualifiers: Urinary tract infection type: acute cystitis
[2018-05-03] MEDS ORDERED: NIFEdipine 10 MG Capsule PO PRN (13:19)
== END 2018-04-14 11:00 | disposition home or self-care (01) ==
LOC: HOBED 12:53 → H2E 12:53
PROVIDERS: ADMIT Obstetrics & Gynecology Maternal & Fetal Medicine; ATTEND Obstetrics & Gynecology Maternal & Fetal Medicine
CPT/HCPCS: 76937; 80053; 80101; 80301; 80307; 81001; 82570; 84155; 84156; 84157; 84439; 84443; 84550; 85027; 87077; 87086; 87186; 93005; 93306; 96361; 96374; 96375; 96376; 99285; G0378; G0431; G0479; G0481; G0483; J0360; J1940; J7120